=== PATIENT | male | born 1970 | race Caucasian/White ===

== ENCOUNTER 2024-07-08 10:43 | Emergency (ER) | payer OTHER ==
[2024-07-08] MEDS ORDERED: Morphine 4 MG/ML VIAL ONE (11:24)
== END 2024-07-08 12:44 | disposition home or self-care (01) ==
LOC: ERS 10:43
DX: M25.512 Pain in left shoulder (principal); I10 Essential (primary) hypertension; W54.1XXA Struck by dog, initial encounter; Y93.89 Activity, other specified; Y92.480 Sidewalk as the place of occurrence of the external cause; Z79.899 Other long term (current) drug therapy; Z89.231 Acquired absence of right shoulder
CPT/HCPCS: 96372; 99283; J2272